=== PATIENT | male | born 1955 | race Caucasian/White ===

== ENCOUNTER 2020-11-25 09:57 | Inpatient (IN) | payer MEDICARE, OTHER ==
[2020-11-25] VITALS (8 sets, daily range): BP systolic 93–140; BP diastolic 68–86
[~2020-11-25] VITALS: Ht 188 cm; Wt 117.0 kg
[~2020-11-25 09:57] MED LIST: ASPI-482 PO; CITA40TA5 PO; CLON2TAB16 PO; LISI10TA16 PO; SUCR1TAB PO; TIMO5DRO5 EACHEYE; [UNRECOGNIZED DRUG - OTHER] PO
[2020-11-25] MEDS ORDERED: dilTIAZem 25 MG/5 ML VIAL IVP ONE ×4 (10:11→14:30)
[2020-11-25] MEDS ORDERED: IV NORMAL SALINE 1,000ML 1,000 ML IV ONE (10:15)
--- NOTE | 2020-11-25 10:15 | PHYS DOC ---
General Adult EDM: Chief Complaint: RAPID HEART RATE HPI: HPI: 65-year-old male presents with with rapid heart rate. The patient has a history of atrial fibrillation. He had an ablation 13 years ago. Around midnight he noticed his heart rate going fast. His watch with heart rate monitor totally appear to be A. fib and this continued through the night. The patient has been taking his flecainide as prescribed. He had one other breakthrough event like this about 2 years ago. He is not sure what brought it on. He said no changes to medications, eating habits, or anything else he can think of. He denies chest pain or diaphoresis. Review of Systems: Review of Systems: Constitutional: Denies fever or chills Eyes: Denies change in visual acuity HENT: Denies nasal congestion or sore throat Respiratory: Denies cough or shortness of breath Cardiovascular: Rapid heart rate GI: Denies abdominal pain, nausea, vomiting, bloody stools or diarrhea : Denies dysuria Musculoskeletal: Denies back pain or joint pain Integument: Denies rash Neurologic: Denies headache, focal weakness or sensory changes Endocrine: Denies polyuria or polydipsia Lymphatic: Denies swollen glands Psychiatric: Denies depression or anxiety Current Medications: Current Meds: Current Medications Medications (Trade) Dose Ordered Sig/Renita Start Time Stop Time Status Last Admin Dose Admin Diltiazem HCl (Cardizem Iv Push) 25 mg STK-MED ONCE 11/25/20 10:11 11/25/20 10:12 DC Allergies: Allergies: Allergies Coded Allergies Type Severity Reaction Last Updated Verified Penicillins Allergy Intermediate 11/16/13 Yes Physical Exam: PE: Constitutional: Well developed, well nourished, no acute distress, non-toxic appearance. [] HENT: Normocephalic, atraumatic, bilateral external ears normal, oropharynx moist, no oral exudates, nose normal. [] Eyes: PERRLA, EOMI, conjunctiva normal, no discharge. [] Neck: Normal range of motion, no tenderness, supple, no stridor. [] Cardiovascular:Heart rate 136, irregular rhythm, no murmur [] Lungs & Thorax: Bilateral breath sounds clear to auscultation [] Abdomen: Bowel sounds normal, soft, no tenderness, no masses, no pulsatile masses. [] Skin: Warm, dry, no erythema, no rash. [] Back: No tenderness, no CVA tenderness. [] Extremities: No tenderness, no cyanosis, no clubbing, ROM intact, no edema. [] Neurologic: Alert and oriented X 3, normal motor function, normal sensory function, no focal deficits noted. [] Psychologic: Affect normal, judgement normal, mood normal. [] EKG: EKG: Irregular rhythm, rate 136, leftward axis, no ST elevation or depression, right bundle branch block. [] Radiology/Procedures: Radiology/Procedures: [] Impressions: EXAM: Chest, single view. HISTORY: Atrial fibrillation. COMPARISON: None. FINDINGS: A frontal view of the chest is obtained. There is no infiltrate, pleural effusion or pneumothorax. The heart is normal in size. IMPRESSION: No acute pulmonary finding. Electronically signed by: Keren Bentley MD (11/25/2020 10:36 AM) [id number] DICTATED AND SIGNED BY: KEREN BENTLEY MD DATE: 11/25/20 1035 CC: MOISÉS FISCHER MD; CORINNA JACKSON DO ~MTH0 0 Heart Score: C/O Chest Pain: No Risk Factors: Risk Factors: DM, Current or recent (<one month) smoker, HTN, HLP, family history of CAD, obesity. Risk Scores: Score 0 - 3: 2.5% MACE over next 6 weeks - Discharge Home Score 4 - 6: 20.3% MACE over next 6 weeks - Admit for Clinical Observation Score 7 - 10: 72.7% MACE over next 6 weeks - Early Invasive Strategies Course & Med Decision Making: Course & Med Decision Making Pertinent Labs and Imaging studies reviewed. (See chart for details) The patient's EKG showed A. fib with a rate of 130s. We will give 20 mg of Cardizem IV. The patient's labs are unremarkable. His chest x-ray is negative for acute findings. His troponin is negative. Patient's heart rate has improved to about 110 but is still A. fib. We will try an additional 20 mg of Cardizem IV. The patient's rate improved, but he continued to be in A. fib. It began to accelerate again about 100. I placed patient on Cardizem drip and I will admit him to the hospital. I spoke with Dr. Cameron and he has accepted the patient for admission. The patient is in agreement with this plan. [] Dragon Disclaimer: Dragon Disclaimer: This electronic medical record was generated, in whole or in part, using a voice recognition dictation system. Departure Departure: Impression: Primary Impression: Afib Qualified Codes: I48.0 - Paroxysmal atrial fibrillation Disposition: ADMITTED INPATIENT Admitting Physician: Srinivasa Camerno Condition: STABLE Referrals: MOISÉS FISCHER MD (PCP) CORINNA JACKSON DO Nov 25, 2020 10:15
--- NOTE | 2020-11-25 10:22 | EKG ---
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
[2020-11-25 10:30] LABS: BASO # 0.1 x10^3/uL (0.0-0.2); BASO % 1 % (0-3); EOS # 0.1 x10^3/uL (0.0-0.7); EOS % 1 % (0-3); HEMATOCRIT 47.1 % (39.0-53.0); LYMPH # 2.2 x10^3/uL (1.0-4.8); LYMPH % 21 % (24-48); MEAN CORPUSCULAR HEMOGLOBIN 29 pg (25-35); MEAN CORPUSCULAR HGB CONC 34 g/dL (31-37); MEAN CORPUSCULAR VOLUME 85 fL (79-100); MONO % 9 % (0-9); NEUT # 7.4 x10^3uL (1.8-7.7); NEUT % 69 % (31-73); PLATELET COUNT 256 x10^3/uL (140-400); RED BLOOD COUNT 5.53 x10^6/uL (4.30-5.70); RED CELL DISTRIBUTION WIDTH 13.4 % (11.5-14.5); WHITE BLOOD COUNT 10.7 x10^3/uL (4.0-11.0)
--- NOTE | 2020-11-25 10:38 | RAD ---
EXAM: Chest, single view. HISTORY: Atrial fibrillation. COMPARISON: None. FINDINGS: A frontal view of the chest is obtained. There is no infiltrate, pleural effusion or pneumo thorax. The heart is normal in size. IMPRESSION: No acute pulmonary finding. Electronically signed by: Keren Pulido MD (11/25/2020 10:36 AM) [id number]
[2020-11-25 10:40] LABS: CALCIUM 9.5 mg/dL (8.5-10.1); CREATININE 1.2 mg/dL (0.7-1.3); GFR 60.8; POTASSIUM 3.9 mmol/L (3.5-5.1)
[2020-11-25 10:44] LABS: ALBUMIN 3.9 g/dL (3.4-5.0); ALBUMIN/GLOBULIN RATIO 0.9 (1.0-1.7); TOTAL BILIRUBIN 0.9 mg/dL (0.2-1.0); TOTAL PROTEIN 8.1 g/dL (6.4-8.2)
[2020-11-25] MEDS ORDERED: dilTIAZem VIAL 125 MG in IV NORMAL SALINE 100ML 100 ML IV PRN (13:00)
--- NOTE | 2020-11-25 13:05 | EKG ---
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
[2020-11-25] MEDS ORDERED: ONDANSETRON PF 4 MG/2 ML VIAL. IVP PRN (13:15)
[2020-11-25] MEDS ORDERED: IV NORMAL SALINE 100ML 100 ML ONE (13:45)
--- NOTE | 2020-11-25 14:51 | HP ---
ADMIT DATE: 11/25/2020 ATTENDING PHYSICIAN: Dr. Cameron. CHIEF COMPLAINT: Fast heart rate. HISTORY OF PRESENT ILLNESS: The patient is a 65-year-old gentleman who has been quite stable. He woke up this morning with rapid heart rate, palpitations. No chest pain. He had some slight exertional dyspnea. No cough or COVID exposure. He came to the ED. Usually, he waits it out and it gets converted to regular rhythm spontaneously. At this time, it did not convert. He came in about 6 hours after the onset. In the ED, he was found to be in atrial fibrillation with rapid ventricular rate. Blood pressure was stable. He was hemodynamically stable. He was given a dose of Cardizem and by the time I saw him, his heart rate was down to 110s. He has been compliant with his medicines. He has been on flecainide, a class 1-C antiarrhythmic for the last 30 years. 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 He denied any chest pain, shortness of breath or recent travel. ALLERGIES: HE HAS ALLERGIES TO PENICILLIN, WHICH CAUSES A RASH. CURRENT MEDICINES: Include Pradaxa, Celexa, Klonopin p.r.n., lisinopril, Carafate, Timolol eyedrops and flecainide eyedrops. PAST MEDICAL HISTORY: Also significant for hypertension, hyperlipidemia, paroxysmal atrial fibrillation. He also has retinitis pigmentosa. SOCIAL HISTORY: He is a nonsmoker, nondrinker. FAMILY HISTORY: Noncontributory. REVIEW OF SYSTEMS: Significant for the onset of palpitation at rest. He was asleep. He denied any recent exertional, chest pain, travel, palpitation or COVID exposure. All other systems reviewed and turned to be negative. PHYSICAL EXAMINATION: GENERAL: When I saw him, this is a pleasant, middle-aged gentleman. VITAL SIGNS: Initial vital signs showed a blood pressure 123/70 mmHg. Pulse was ranging between 95 and 120, irregularly irregular. He was afebrile, oxygen saturation 95% on room air. HEENT: Head is without trauma. Pupils are reactive. Sclerae are nonicteric. The oropharynx is clear. NECK: Supple. LUNGS: Actually clear to auscultation. CARDIOVASCULAR: Showed tachycardic rhythm, irregularly irregular. No palpitation. Peripheral pulses are palpable and full. ABDOMEN: Obese, protuberant. No organomegaly. Bowel sounds are hypoactive. EXTREMITIES: Show no cyanosis or edema. NEUROLOGIC: Focally intact. Speech is fluent. SKIN: Warm and dry. PERTINENT LABORATORY STUDIES: Hemoglobin is 16.6 g/dL, white count 10,700. Electrolytes all within normal range. Sodium 140 mEq, potassium 3.9 mEq/liter. Creatinine is 1.2 mg/dL. Nonfasting blood sugar 127. The first set of cardiac enzymes negative for coronary ischemia. Chest x-ray initially showed no acute decompensation or infiltrates. ASSESSMENT: 1. A 65-year-old gentleman with atrial fibrillation with rapid ventricular rate. 2. History of longstanding atrial fibrillation with previous ablation therapy. 3. Essential hypertension. 4. History of retinitis pigmentosa. 5. Hyperlipidemia. PLAN: 1. Admit to the Inpatient Unit, telemetry monitoring. 2. We shall continue his Cardizem drip. 3. Formal Cardiology Consult . 4. Continue home medications. Our goal is to slow the ventricular rate and allow his heart to spontaneously convert as it has in the past. I do not think we will need to consider cardioversion at this time, it is still too early in the process to tell. ELVA/LAURA/CHANDA DR: Lucy TID: [id number] CC: MOISÉS FISCHER MD
[2020-11-25] MEDS ORDERED: LATA7.5D OU (18:20)
[2020-11-25] MEDS ORDERED: DABI150C PO (18:20)
[2020-11-25] MEDS ORDERED: HYDR12.58 PO (18:20)
[2020-11-25] MEDS ORDERED: PANT40TA6 PO (18:20)
[2020-11-25] MEDS ORDERED: ATOR40TA59 PO (18:20)
[2020-11-25] MEDS ORDERED: DORZ10DR28 OP (18:20)
[2020-11-25] MEDS ORDERED: FLEC100T PO (20:13)
[2020-11-25] MEDS ORDERED: ATORVASTATIN CALCIUM 20 MG TABLET PO SCH (21:00)
[2020-11-25] MEDS ORDERED: LATANOPROST 0.005% OPHTH SOLUTION 2.5ML BOTTLE. OD SCH (21:00)
[2020-11-25] MEDS: DABIGATRAN ETEXILATE 150 MG CAPSULE. PO SCH (21:36)
[2020-11-25] MEDS: FLECAINIDE 50 MG TABLET. PO SCH (21:36)
[2020-11-25] MEDS: DORZOLAMIDE 2% OPHTH SOLUTION 10ML BOTTLE. OU SCH (21:37)
[2020-11-26] VITALS (10 sets, daily range): BP systolic 94–118; BP diastolic 63–79
--- NOTE | 2020-11-26 08:20 | PDOC2 ---
CARDIAC CONSULT DATE OF CONSULT DOS: DATE: 11/26/20 TIME: 08:15 REASON FOR CONSULT Reason for Consult AFIB REFERRING PHYSICIAN Referring Physician Dr. Cameron SOURCE Source: Chart review, Patient HPI History of Present Illness This is a 65 yo male who presented secondary to rapid heart rate. Patient has a history of AFIB s/p previous ablation therapy. Has been on flecainide for many years. Follows with Dr. Jenkins. Patient reports feeling rapid heart beat at home. Watch detected rapid, irregular rhythm. Patient waited as he thought this would resolve without intervention. Symptoms persisted so he came into the ED for further evaluation and treatment. He was placed on Cardizem gtt and converted back to SR/SB and has been maintaining. PAST MEDICAL HISTORY Cardiovascular: AFIB (s/p ablation ), HTN, hyperipidemia, Other (sinus bradycardia ) Pulmonary: Other (ANTHONY ) GI: GERD PAST SURGICAL HISTORY Past Surgical History: Other FAMILY HISTORY Family History: Hypertension SOCIAL HISTORY Smoke: No ALCOHOL: none Drugs: None Lives: with Family CURRENT MEDICATIONS Current Medications Current Medications Diltiazem HCl (Cardizem Iv Push) 25 mg STK-MED ONCE IVP ; Start 11/25/20 at 10:11; Stop 11/25/20 at 10:12; Status DC Sodium Chloride 1,000 ml @ 1,000 mls/hr 1X ONCE IV Last administered on 11/25/20at 10:22; Start 11/25/20 at 10:15; Stop 11/25/20 at 11:14; Status DC Diltiazem HCl (Cardizem Iv Push) 20 mg 1X ONCE IVP Last administered on 11/25/20at 10:14; Start 11/25/20 at 10:15; Stop 11/25/20 at 10:25; Status DC Diltiazem HCl (Cardizem Iv Push) 20 mg 1X ONCE IVP Last administered on 11/25/20at 11:17; Start 11/25/20 at 11:15; Stop 11/25/20 at 11:16; Status DC Diltiazem HCl 125 mg/Sodium Chloride 125 ml @ 5 mls/hr CONT PRN IV PER PROTOCOL Last administered on 11/25/20at 13:58; Start 11/25/20 at 13:00 Ondansetron HCl (Zofran) 4 mg PRN Q4HRS PRN IVP NAUSEA/VOMITING; Start 11/25/20 at 13:15; Stop 11/26/20 at 13:14 Sodium Chloride 100 ml @ As Directed STK-MED ONCE .ROUTE ; Start 11/25/20 at 13:45; Stop 11/25/20 at 13:45; Status DC Diltiazem HCl (Cardizem) 125 mg STK-MED ONCE IV ; Start 11/25/20 at 13:45; Stop 11/25/20 at 13:45; Status DC Diltiazem HCl (Cardizem Iv Push) 20 mg 1X ONCE IVP Last administered on 11/25/20at 14:32; Start 11/25/20 at 14:30; Stop 11/25/20 at 14:31; Status DC Influenza Virus Vaccine Quadrival (Flulaval Quad 1525-0313 Syringe) 0.5 ml ONCE ONCE VAX IM ; Start 11/26/20 at 09:00; Stop 11/26/20 at 09:01 Dabigatran (Pradaxa) 150 mg BID PO Last administered on 11/25/20at 21:36; Start 11/25/20 at 21:00 Lisinopril (Prinivil) 20 mg DAILY PO ; Start 11/26/20 at 09:00 Pantoprazole Sodium (Protonix) 40 mg DAILY PO ; Start 11/26/20 at 09:00 Atorvastatin Calcium (Lipitor) 40 mg QHS PO Last administered on 11/25/20at 21:36; Start 11/25/20 at 21:00 Dorzolamide HCl (Trusopt) 1 drop BID OU Last administered on 11/25/20at 21:37; Start 11/25/20 at 21:00 Flecainide Acetate (Tambocor) 150 mg BID PO Last administered on 11/25/20at 21: 36; Start 11/25/20 at 21:00 Latanoprost (Xalatan) 1 drop QHS OD Last administered on 11/25/20at 21:37; Start 11/25/20 at 21:00 Active Scripts Active Reported Flecainide Acetate 100 Mg Tablet 150 Mg PO BID Pradaxa (Dabigatran Etexilate Mesylate) 150 Mg Capsule 1 Cap PO BID Dorzolamide 2% Eye Drop (Dorzolamide HCl/Pf) 10 Ml Drops 10 Ml OP 1-2XD Latanoprost 0.005% Eye Drop (Latanoprost/Pf) 7.5 Ml Drops 1 Drop OU QHS Atorvastatin Calcium 40 Mg Tablet 1 Tab PO QHS Pantoprazole Sodium 40 Mg Tablet.dr 1 Tab PO DAILY Hydrochlorothiazide Tablet (Hydrochlorothiazide) 12.5 Mg Tablet 12.5 Mg PO DAILY Lisinopril 10 Mg Tablet 20 Mg PO DAILY ALLERGIES Allergies: Coded Allergies: Penicillins (Verified Allergy, Intermediate, 11/16/13) ROS Review of Systems 14 point ROS conducted with pertinent positives noted above in HPI PHYSICAL EXAM General: Alert, Oriented X3, Cooperative, No acute distress HEENT: Atraumatic Lungs: Clear to auscultation Heart: Regular rate Abdomen: Soft, No tenderness Extremities: No edema, Normal pulses Skin: No breakdown Neuro: Normal speech, Strength at 5/5 X4 ext, Sensation intact Psych/Mental Status: Mental status NL, Mood NL MUSCULOSKELETAL: Osteoarthritic changes both hands VITALS Vital Signs Vital Signs Date Time Temp Pulse Resp B/P (MAP) Pulse Ox O2 Delivery O2 Flow Rate FiO2 11/26/20 07:21 53 16 118/75 (89) 97 Nasal Cannula 2.0 11/26/20 06:00 98.0 LABS LABS Laboratory Tests Test 11/25/20 10:12 11/25/20 14:27 11/25/20 16:11 White Blood Count 10.7 x10^3/uL (4.0-11.0) Red Blood Count 5.53 x10^6/uL (4.30-5.70) Hemoglobin 16.0 g/dL (13.0-17.5) Hematocrit 47.1 % (39.0-53.0) Mean Corpuscular Volume 85 fL (79-100) Mean Corpuscular Hemoglobin 29 pg (25-35) Mean Corpuscular Hemoglobin Concent 34 g/dL (31-37) Red Cell Distribution Width 13.4 % (11.5-14.5) Platelet Count 256 x10^3/uL (140-400) Neutrophils (%) (Auto) 69 % (31-73) Lymphocytes (%) (Auto) 21 % (24-48) Monocytes (%) (Auto) 9 % (0-9) Eosinophils (%) (Auto) 1 % (0-3) Basophils (%) (Auto) 1 % (0-3) Neutrophils # (Auto) 7.4 x10^3uL (1.8-7.7) Lymphocytes # (Auto) 2.2 x10^3/uL (1.0-4.8) Monocytes # (Auto) 1.0 x10^3/uL (0.0-1.1) Eosinophils # (Auto) 0.1 x10^3/uL (0.0-0.7) Basophils # (Auto) 0.1 x10^3/uL (0.0-0.2) Sodium Level 140 mmol/L (136-145) Potassium Level 3.9 mmol/L (3.5-5.1) Chloride Level 104 mmol/L (98-107) Carbon Dioxide Level 27 mmol/L (21-32) Anion Gap 9 (6-14) Blood Urea Nitrogen 16 mg/dL (8-26) Creatinine 1.2 mg/dL (0.7-1.3) Estimated GFR (Cockcroft-Gault) 60.8 BUN/Creatinine Ratio 13 (6-20) Glucose Level 127 mg/dL (70-99) Calcium Level 9.5 mg/dL (8.5-10.1) Total Bilirubin 0.9 mg/dL (0.2-1.0) Aspartate Amino Transf (AST/SGOT) 19 U/L (15-37) Alanine Aminotransferase (ALT/SGPT) 26 U/L (16-63) Alkaline Phosphatase 121 U/L (46-116) Troponin I Quantitative < 0.017 ng/mL (0-0.055) < 0.017 ng/mL (0-0.055) Total Protein 8.1 g/dL (6.4-8.2) Albumin 3.9 g/dL (3.4-5.0) Albumin/Globulin Ratio 0.9 (1.0-1.7) SARS-CoV-2 Antigen (Rapid) Negative (NEGATIVE) EKG EKG 09/06/20 - HOLTER WEARABLE ECG MONITOR CONNECT + SCAN Interpretation Summary [id number] Holter monitor Indicationhistory of paroxysmal atrial fibrillation, history of sinus bradycardia 1. Predominant rhythm is normal sinus with an average heart rate was 53 bpm, minimum heart rate was 35 bpm on Day 2 / :12:08 am, and a max heart of 92/min on day 2 at 7:57 AM 2. No atrial fibrillation or flutter was seen 3. Infrequent PACs were present 4. Occasional supraventricular tachycardia runs were noted, longest being 14 beats on day 1 at 1:49 PM 5. No high-grade AV blocks or prolonged RR intervals 6. No symptoms are reported during the monitoring. STRESS TEST Stress Test 04/05/17 - DOBUTAMINE STRESS ECHOCARDIOGRAM W/2-D ECHO Interpretation Summary Resting Echocardiogram: LVEF= 60-65%. Normal resting left ventricular systolic function. Mildly dilated right and left atria Unremarkable valve structures. Unable to assess valvular regurgitation as limited study without color and doppler. Unable to assess pulmonary artery systolic pressure. Dobutamine Stress ECG: Resting ECG demonstrates sinus rhythm. Patient reported head tingling and 5/10 back neck pain with dobutamine infusion. No new diagnostic ST-segment changes. No isolated VPCs or sustained ectopy or arrhythmias. Negative dobutamine stress ECG. Dobutamine Stress Echo: Appropriate low-dose, mid-dose, peak-dose and recovery response with dobutamine. No new regional wall motion abnormalities. Global left ventricular systolic function becomes hyperdynamic. Left ventricular ejection fraction increases. Left ventricular volume decreases. Low risk study for significant obstructive coronary artery disease ASSESSMENT/PLAN Assessment/Plan 1. PAFIB presenting with RVR. S/p previous ablation. On flecainide for rhythm maintenance. converted back to SR/SB and is maintaining. He has been unable to tolerate low-dose AV marlena blocking agents in past due to bradycardia. Flecainide was converted to amiodarone years ago, but this was discontinued as patient had significant bradycardia with fatigue. Flecainide was resumed at this time. Follows with Dr. Gregory DILLON 2. Hypertension; controlled 3. Hyperlipidemia 4, ANTHONY Recommendations Resume flecainide for rhythm maintenance Pradaxa for stroke prophylaxis Unable to place on AV marlena blocking agents due to sinus bradycardia. May ultimately need pacemaker. If AFIB recurrent, consider Tikosyn. 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 Okay to discharge from a CV standpoint and f/u with Dr. Jenkins in 2 weeks Records from [facility] PAF (paroxysmal atrial fibrillation) (HCC) 02/12/200909/2015 per pt, no AF since 2011 -PAFIB, at times other RVR, dating back years. a. Has been on flecainide, titrated to 150 mg b.i.d. with good response. b. 11/2007, limited recurrent AFIB, Coumadin discontinued in favor of full-dose aspirin. c. Recurrent AFIB with RVR 09/2008 - - had been nearly 18 months since prior events. Flecainide discontinued in favor of amiodarone. d. 10/16/2008, significant bradycardia with fatigue after roughly 2 weeks of amiodarone - - as Flecainide had previously been controlling AFIB relatively well, reinitiated at 150 b.i.d. e. Plan on pursuing focal AFib ablation. f. Management of sleep apnea. g. A 64-slice CT angiogram or MRI pending prior to ablation, ablated in 2008 h. 01/03/2009, plan on pursuing focal AFib ablation - PVAI. i. Resolved tachycardia-induced cardiomyopathy. Echocardiogram 09/2008 with recurrent AFIB, EF 30 percent to 35 percent at time of RVR. j. Rhythm and rate control achieved and reassessment of LV function by echocardiogram 11/14/2008, EF 55 percent to 60 percent - - LA dimension 4.0 cm. k. MRI 01/30- 4 PVs, LSup. funnel, LA moderately enlarged l. 02/12/09 ASHOK-Focal AFIB RFA m. -03/03 ELR-one episode of NS recurrent AFIB 03/06 n. 05/01 F/U CTA or MRI pending FRANCINE PRATHER APRN Nov 26, 2020 08:20
[2020-11-26] MEDS ORDERED: PANTOPRAZOLE 40 MG TABLET. PO SCH (09:00)
[2020-11-26] MEDS ORDERED: FLU VACC QUAD 21-22 (6MOS+) PF 0.5 ML SYRINGE. VAX IM ONE (09:00)
[2020-11-26] MEDS ORDERED: LISINOPRIL 20 MG TABLET PO SCH (09:00)
[2020-11-26] MEDS: DORZOLAMIDE 2% OPHTH SOLUTION 10ML BOTTLE. OU SCH (09:00)
[2020-11-26] MEDS: DABIGATRAN ETEXILATE 150 MG CAPSULE. PO SCH (09:49)
[2020-11-26] MEDS: FLECAINIDE 50 MG TABLET. PO SCH (09:50)
--- NOTE | 2020-11-26 10:28 | DS ---
DATE OF DISCHARGE: 11/26/2020 ATTENDING PHYSICIAN: Dr. Cameron. FINAL DISCHARGE DIAGNOSES: 1. Atrial fibrillation with rapid ventricular rate, converted. 2. History of longstanding atrial fibrillation with previous ablation therapy. 3. Essential hypertension. 4. History of retinitis pigmentosa. 5. Hyperlipidemia. HISTORY AND PHYSICAL: The patient is a pleasant 65-year-old gentleman with paroxysmal atrial fibrillation for many years. He has been on flecainide. He normally sees Cardiology services at [facility]. He presented with new onset of palpitations. He was in atrial fibrillation with rapid ventricular rate. PHYSICAL EXAMINATION: Please see the dictated note. PERTINENT LABORATORY AND X-RAY STUDIES: Electrolytes within normal range. Nonfasting blood sugar 127. Cardiac enzymes were negative for coronary ischemia. Hemoglobin was 16.0 g/dL, white count 10,700. Serology was negative for coronavirus. Chest x-ray was clear without any decompensation. COURSE IN HOSPITAL: The patient was given Cardizem infusion. He has had Cardizem before, which caused symptomatic bradycardia. He was on the drip for approximately 12 hours. He did convert early in the morning of the second hospital day, we continued his flecainide and Pradaxa. We had formal Cardiology consultation; because of his eyesight, he really does not want to drive all the way to [facility]. He is considering switching care to the [facility] as he knows Dr. Mcqueen. On the second hospital day, he was feeling better. He converted to sinus rhythm. He wanted to go home. I felt this was reasonable. Recommendation for our Cardiology services are on the chart. He is discharged home with no changes on his meds. He will continue his Lipitor, Pradaxa, dorzolamide eye drops, flecainide 150 b.i.d., hydrochlorothiazide, latanoprost, lisinopril, and Protonix dose is unchanged. His prognosis is fair. Eventually, in the distant future, he will probably need a permanent pacemaker and better control of his atrial fibrillation. He was discharged from our hospital in stable condition with explicit drug and followup care. ELVA/MELANY DR: Lucy TID: [id number] CC: MOISÉS FISCHER MD
== END 2020-11-26 11:00 | disposition home or self-care (01) | DRG 310 ==
LOC: ER 09:57 → ICU 13:14 → ER 16:17
PROVIDERS: ADMIT Hospitalist; ATTEND Hospitalist
DX: I48.0 Paroxysmal atrial fibrillation (principal); I10 Essential (primary) hypertension; E78.5 Hyperlipidemia, unspecified; G47.33 Obstructive sleep apnea (adult) (pediatric); Z82.49 Family history of ischemic heart disease and other diseases of the circulatory system; K21.9 Gastro-esophageal reflux disease without esophagitis; Z20.822 Contact with and (suspected) exposure to COVID-19
CPT/HCPCS: 36415; 71045; 80053; 84443; 84484; 85025; 87426; 90471; 90686; 93005; 96361; 96365; 96366; 96376; J3490; U0003; 99285-25; J7030

== ENCOUNTER → 2020-12-31 | Outpatient (CLI) | payer MEDICARE ==
[2020-11-26 10:00] VITALS: BP 116/69
[~2020-12-31] MED LIST changes: +ATOR40TA59 PO; -CITA40TA5 PO; +CITA40TA6 PO; +DABI150C PO; +DORZ10DR28 OP; +FLEC100T PO; +HYDR12.58 PO; +LATA7.5D OU; +PANT40TA6 PO
--- NOTE | 2021-01-01 12:31 | CARD ---
MR#: [id number] Date of Study: 12/31/2020 Ordering Physician: ADAMS MATHEW, Referring Physician: ADAMS MATHEW Tech: Jt Barragan [facility] APPROVED REPORT EXAM: Two-dimensional and M-mode echocardiogram with Doppler and color Doppler. Other Information Quality : FairHR: 54bpm Rhythm : Bradycardia INDICATION Atrial Fibrillation RISK FACTORS Hypertension Obesity Family History 2D DIMENSIONS Left Atrium(2D)4.4 (1.6-4.0cm)IVSd1.0 (0.7-1.1cm) Aortic Root(2D)3.3 (2.0-3.7cm)LVDd5.7 (3.9-5.9cm) LVOT Diameter2.0 (1.8-2.4cm)PWd1.0 (0.7-1.1cm) LVDs3.2 (2.5-4.0cm)FS (%) 44.4 % SV119.1 ml Aortic Valve AoV Peak Donovan.123.9cm/sAoV VTI26.0cm AO Peak GR.6.1mmHgLVOT Peak Donovan.121.5cm/s LVOT VTI 21.84cmAO Mean GR.4mmHg KAM (VMAX)3.79ci0DAC (VTI)2.76cm2 Mitral Valve MV E Uyagzvua50.3cm/sMV E Peak Gr.3mmHg MV DECEL [id number] A Jrdosgvq06.9cm/s MV E Mean Gr.1mmHgE/A Ratio1.4 Pulmonary Valve PV Peak Pjxvynzu706.7cm/sPV Peak Grad.13mmHg Tricuspid Valve TR P. Umwphxhj408ky/sTR Peak Gr.19mmHg Pulmonary Vein S1 Jrgzgmha61.2cm/sD2 Yvzaazcb49.1cm/s LEFT VENTRICLE The left ventricle is normal size. There is normal left ventricular wall thickness. The left ventricu lar systolic function is normal and the ejection fraction is within normal range. LV ejection fractio n of 50 to 55%. There is normal LV segmental wall motion. Transmitral Doppler flow pattern is Grade I I-pseudonormal filling dynamics. No left ventricle thrombus noted on this study. There is no ventricu lar septal defect visualized. There is no left ventricular aneurysm. There is no mass noted in the le ft ventricle. RIGHT VENTRICLE The right ventricle is normal size. There is normal right ventricular wall thickness. The right ventr icular systolic function is normal. ATRIA The left atrium is mildly dilated. The right atrium size is normal. The interatrial septum is intact with no evidence for an atrial septal defect or patent foramen ovale as noted on 2-D or Doppler imagi ng. AORTIC VALVE The aortic valve is normal in structure and function. Doppler and Color Flow revealed no significant aortic regurgitation. There is no significant aortic valvular stenosis. There is no aortic valvular v egetation. MITRAL VALVE The mitral valve is normal in structure and function. There is no evidence of mitral valve prolapse. There is no mitral valve stenosis. Doppler and Color Flow revealed trace mitral valve regurgitation. TRICUSPID VALVE The tricuspid valve is normal in structure and function. Doppler and Color Flow revealed trace tricus pid regurgitation. There is no tricuspid valve prolapse or vegetation. There is no tricuspid valve st enosis. PULMONIC VALVE The pulmonary valve is normal in structure and function. There is trivial pulmonic regurgitation. The re is no pulmonic valvular stenosis. GREAT VESSELS The aortic root is normal in size. The ascending aorta is normal in size. The pulmonary artery is nor mal. The IVC is not well visualized. PERICARDIAL EFFUSION There is no pleural effusion. There is no evidence of significant pericardial effusion. Critical Notification Critical Value: No <Conclusion> The left ventricle is normal size. The left ventricular systolic function is normal and the ejection fraction is within normal range. LV ejection fraction of 50 to 55%. Doppler and Color Flow revealed no significant aortic regurgitation. There is no significant aortic valvular stenosis. Doppler and Color Flow revealed trace mitral valve regurgitation. Doppler and Color Flow revealed trace tricuspid regurgitation. Signed by : Edilson Ortiz MD Electronically Approved : 01/01/2021 12:31:21
== END ==
LOC: ECHO 14:39
PROVIDERS: ATTEND Internal Medicine Cardiovascular Disease
DX: I37.1 Nonrheumatic pulmonary valve insufficiency (principal); I48.91 Unspecified atrial fibrillation
CPT/HCPCS: 93306